=== PATIENT | male | born 1980 | race Caucasian/White ===

== ENCOUNTER 2021-06-03 17:59 | Emergency (ER) | payer OTHER, SELFPAY ==
[2021-06-03 18:07] VITALS: BP 143/67; PULSE 77; RESP 18; TEMP 36.8; O2SAT 98; BMI 26.2
--- NOTE | 2021-06-03 18:10 | DI.RAD.S_ITS ---
PROCEDURE: XR ANKLE RT MIN 3V INDICATIONS: Rolled right ankle, lateral swelling TECHNIQUE: 3 views of the ankle were acquired. COMPARISON: None. FINDINGS: Bones: There is a small osteochondral fracture at the lateral aspect of the talar dome. Ankle mortise is normally aligned. No suspicious bony lesions. Soft tissues: Soft tissue edema is seen overlying the lateral malleolus. IMPRESSION: Small nondisplaced osteochondral fracture at the lateral talar dome. Dictated by: Kyle Akins M.D. on 06/03/2021 at 18:44 Approved by: Kyle Akins M.D. on 06/03/2021 at 18:46
[2021-06-03] MEDS: IBUPROFEN 400 MG TABLET 800 MG PO (18:14)
--- NOTE | 2021-06-03 19:35 | ED_ITS ---
HPI - Extremity Injury (Lower) <Giorgio Ang PA-C - Last Filed: 06/04/21 14:19> General Chief Complaint: Extremity Injury, Lower Stated Complaint: RT ANKLE INJURY/PAIN Time Seen by Provider: 06/03/21 18:49 Source: patient Mode of arrival: Ambulatory Limitations: no limitations History of Present Illness HPI Narrative: Cade presents today with chief complaint of right ankle pain and swelling. He reports that he sprained it while playing softball earlier this evening. He denies any previous injuries to the area. He reports significant pain with walking to the point that he has not been able to bear any weight. He has not taken anything to help alleviate his symptoms. He denies any other acute concerns or complaints at this time. Related Data Previous Rx's Medication Instructions Recorded azithromycin 250 mg tablet 250 mg PO SEE INSTRUCTIONS #6 tab 10/24/16 (Zithromax) benzonatate 100 mg capsule 100 mg PO BIDP PRN #30 cap 10/24/16 (Tessalon Perles) Allergies Allergy/AdvReac Type Severity Reaction Status Date / Time No Known Drug Allergies Allergy Verified 06/03/21 18:07 Review of Systems <Giorgio Ang PA-C - Last Filed: 06/04/21 14:19> Review of Systems Narrative: As per HPI Patient History <Giorgio Ang PA-C - Last Filed: 06/04/21 14:19> Social History Smoking Status: Never smoker Smoking Status: Never smoker alcohol intake frequency: holidays/special occasions only Substance Use Type: does not use Exam <Giorgio Ang PA-C - Last Filed: 06/04/21 14:19> Narrative Exam Narrative: Exam Narrative: Const General: cooperative, healthy appearing, comfortable, no acute distress, well developed and well groomed Nutritional Appearance: average body habitus Orientation: alert and oriented x3 HENMT Head: normal to inspection and atraumatic Ears: hearing grossly normal bilaterally Nose: external nose normal and nares normal Face and sinus: normal facial exam Neck Neck: normal visual inspection and supple Resp Effort & Inspection: normal respiratory effort, able to speak in complete sentences, no audible wheezes, not labored, no nasal flaring and no respiratory distress Neuro General: alert, oriented x3, tone normal and moves all extremities Cognition: normal cognition Speech: speech normal Extremities Lower extremities exposed. Right lateral ankle is swollen and tender to the touch. Mild bruising noted. Decreased range of motion of the ankle. Psych Appearance: grossly normal and well kempt Mental Status: mental status grossly normal Speech and Movement: speech and movement normal Mood: congruent mood Affect: normal affect Initial Vital Signs Initial Vital Signs: Vital Signs Temperature 98.3 F 06/03/21 18:07 Pulse Rate 77 06/03/21 18:07 Respiratory Rate 18 06/03/21 18:07 Blood Pressure 143/67 H 06/03/21 18:07 Pulse Oximetry 98 06/03/21 18:07 <Desiree White DO - Last Filed: 06/05/21 03:41> Initial Vital Signs Initial Vital Signs: Vital Signs Temperature 98.3 F 06/03/21 18:07 Pulse Rate 77 06/03/21 18:07 Respiratory Rate 18 06/03/21 18:07 Blood Pressure 143/67 H 06/03/21 18:07 Pulse Oximetry 98 06/03/21 18:07 Course <Giorgio Ang PA-C - Last Filed: 06/04/21 14:19> Orders Ordered: Discontinued Medications Ibuprofen (Ibuprofen 400 Mg Tablet) 800 mg PO NOW ONE Stop: 06/03/21 18:13 Last Admin: 06/03/21 18:14 Dose: 800 mg Documented by: SABA Vital Signs Vital signs: Vital Signs - 8 hr 06/03/21 18:07 Temperature 98.3 F Pulse Rate 77 Respiratory Rate 18 Blood Pressure 143/67 H Pulse Oximetry 98 <DO Davide Avalos Last Filed: 06/05/21 03:41> Orders Ordered: Discontinued Medications Ibuprofen (Ibuprofen 400 Mg Tablet) 800 mg PO NOW ONE Stop: 06/03/21 18:13 Last Admin: 06/03/21 18:14 Dose: 800 mg Documented by: SABA Vital Signs Vital signs: Vital Signs - 8 hr 06/03/21 18:07 Temperature 98.3 F Pulse Rate 77 Respiratory Rate 18 Blood Pressure 143/67 H Pulse Oximetry 98 MDM - Extremity Injury (Lower) <OPHELIA Olson Last Filed: 06/04/21 14:19> MDM Narrative Medical decision making narrative: Patient appears to have an isolated talar dome fracture at this time. He is put in a posterior short-leg with sugar-tong splint and recommended non weight-bearing activities until he is evaluated by Orthopedics whom were consulted here in the emergency department. Recommend alternating between acetaminophen or ibuprofen as needed for pain management. I do not see any other signs of injury at this time. Patient verbalizes understanding and agrees to plan and has no further concerns at this time. Thank you A [id number] system was used with the dictation of this note. Please disregard any spelling or grammatical errors. Discharge Plan Departure Patient Disposition: Home Clinical Impression: Ankle fracture Qualifiers: Encounter type: initial encounter Fracture type: closed Laterality: right Quali fied Code(s): S82.891A - Other fracture of right lower leg, initial encounter for closed fracture Instructions: DI for Fracture Activity Restrictions/Additional Instructions: It was nice to meet you this evening. Please do not bear any weight on this ankle until you are formally evaluated by the orthopedist. Give them a call Saturday to schedule a follow-up appointment. Recommend alternating between acetaminophen or ibuprofen as needed for pain management. You can also elevate the foot. If you experience significant worsening pain, fever, numbness or tingling in the toes, or have any additional concerns or complaints do not hesitate return for re-evaluation. Thank you Giorgio Ang PAC Prescriptions: No Action azithromycin [Zithromax] 250 MG tablet 250 mg PO SEE INSTRUCTIONS Qty: 6 RF: 0 benzonatate [Tessalon Perles] 100 MG capsule 100 mg PO BIDP PRNQty: 30 RF: 0 Referrals: Antonia Vasquez MD [Primary Care Provider] - Atul Solomon MD [Physician] - 3-5 days
== END 2021-06-03 20:38 | disposition home or self-care (01) ==
PROVIDERS: Emergency Provider Physician Assistant; PCP Student in an Organized Health Care Education/Training Program
DX: S92.144A Nondisplaced dome fracture of right talus, initial encounter for closed fracture (principal); X58.XXXA Exposure to other specified factors, initial encounter; Y93.64 Activity, baseball
CPT/HCPCS: 29515; 73610; 99283

== ENCOUNTER → 2021-06-19 09:41 | Outpatient (CLI) | payer OTHER, SELFPAY ==
--- NOTE | 2021-06-19 | DI.CT.S_ITS ---
PROCEDURE: CT LE RT WO CON INDICATIONS: Pain in right ankle and joints of right foot TECHNIQUE: Noncontrast 1-1.5 mm axial sections acquired from above the tibiotalar joint to the bottom of the calcaneus, with coronal and sagittal reformats. COMPARISON: [facility], CR, XR ANKLE RT MIN 3V, 06/03/2021, 18:25. FINDINGS: Image quality: Excellent. Bones: Ankle mortise is congruent. No fracture or dislocation is seen on the current study. Previously described osteochondral injury involving lateral talar dome is not definitively seen on the current study. Subtle area of radiolucency is noted involving posterior lateral corner of talar dome, which may represent interval healing. No new osteochondral injury is seen. No suspicious intraosseous lesion. Soft tissues: Mild ankle soft tissue swelling is noted. Small tibiotalar joint effusion is noted, no calcified intra-articular loose body. No full-thickness tendon rupture is noted. Plantar fascia is intact. IMPRESSION: 1. Previously described slightly displaced osteochondral injury involving lateral talar dome is not definitively seen on the current study. Ill-defined area of radiolucency involving posterior lateral aspect of talar dome which may represent interval healing of the osteochondral injury. 2. No other fracture or dislocation is seen. No suspicious intraosseous lesion. 3. No full-thickness tendon rupture. Small to moderate tibiotalar joint effusion, no calcified intra-articular loose body. Mild ankle soft tissue swelling. Dictated by: Juan Jose Stiles M.D. on 06/19/2021 at 10:48 Approved by: Juan Jose Stiles M.D. on 06/19/2021 at 13:14
== END ==
PROVIDERS: PCP Student in an Organized Health Care Education/Training Program; Referring Provider Orthopaedic Surgery Adult Reconstructive Orthopaedic Surgery; Visit Provider Orthopaedic Surgery Adult Reconstructive Orthopaedic Surgery
DX: M25.571 Pain in right ankle and joints of right foot (principal); M79.89 Other specified soft tissue disorders; M25.471 Effusion, right ankle
CPT/HCPCS: 73700

== ENCOUNTER → 2023-02-22 07:53 | Outpatient (CLI) | payer OTHER, SELFPAY ==
--- NOTE | 2023-02-22 07:55 | DI.RAD.S_ITS ---
PROCEDURE: XR KNEE LT 3V INDICATIONS: bursa rupture/bursitis vs infection TECHNIQUE: 3 views of the knee were acquired. COMPARISON: None. FINDINGS: Bones: No fractures or dislocations. No suspicious bony lesions. Soft tissues: Soft tissue swelling along anterior aspect of left patella and patella tendon is noted. There is small suprapatellar joint effusion. No suspicious soft tissue calcifications. IMPRESSION: No acute left knee fracture or dislocation. Small joint effusion. Significant soft tissue swelling along anterior aspect of left knee, prepatellar bursitis cannot be excluded. Dictated by: Juan Jose Stiles M.D. on 02/22/2023 at 8:24 Approved by: Juan Jose Stiles M.D. on 02/22/2023 at 8:25
== END ==
PROVIDERS: PCP Registered Nurse; Referring Provider Student in an Organized Health Care Education/Training Program; Visit Provider Student in an Organized Health Care Education/Training Program
DX: M25.462 Effusion, left knee (principal); M25.562 Pain in left knee; M70.52 Other bursitis of knee, left knee
CPT/HCPCS: 73562